=== PATIENT | female | born 1980 | race Caucasian/White ===

== ENCOUNTER 2021-01-28 11:22 | Day surgery (SDC) | payer OTHER, SELFPAY ==
[2021-01-22 10:17] VITALS: BMI 17.9
[2021-01-28] VITALS (7 sets, daily range): BP systolic 88–118; BP diastolic 62–79; PULSE 85–102; RESP 11–14; TEMP 36.5–36.9; O2SAT 99–100; BMI 17.3
--- NOTE | 2021-01-28 12:39 | WPDHPUPDATE1 ---
History and Physical Update Update Date/Time: 01/28/21 12:39 History and Physical has been reviewed, including an updated exam of the patient. There are NO changes in the patient's condition. Risks, benefits, and alternatives have been discussed and questions answered. Patient agrees to proceed with procedure.
--- NOTE | 2021-01-28 12:40 | WPDANESEPPF ---
Anes - Initial Pre Proc Eval Procedure: Operation Date: 01/28/21 13:00 Proposed Procedures p Bilateral Breast Augmentation Mammoplasty - Blaze Gregory MD Date/Time: 01/28/21 12:40 Surgeon: Blaze Gregory MD Pre Op Diagnosis: Micromastia Patient Data Age: 40 Gender: F Height: 1.77 m Weight: 54.05 kg Last Vital Signs Temp 36.9 C 01/28/21 12:21 Pulse 99 01/28/21 12:21 Resp 14 01/28/21 12:21 BP 109/62 01/28/21 12:21 Pulse Ox 99 01/28/21 12:21 Allergies Allergy/AdvReac Type Severity Reaction Status Date / Time gluten Allergy Mild STOMACH Verified 01/28/21 11:48 BLOATING AND INTESTINAL DAMAGE Penicillins Allergy Mild Hives / Verified 01/28/21 11:48 Red Face hydromorphone [From Dilaudid] Allergy Unknown unknown Verified 01/28/21 11:48 Sulfa (Sulfonamide Allergy Unknown Hives / Verified 01/28/21 11:48 Antibiotics) Red Face Home Medications Medication Instructions Recorded Confirmed Type cetirizine 10 mg capsule 10 mg PO DAILY 12/25/20 01/28/21 History glatiramer 40 mg/mL subcutaneous 40 mg SUBCUT 3XW 12/25/20 01/28/21 History syringe ketotifen PO 12/25/20 History quercetin 250 mg BYMOUTH TID 12/25/20 01/28/21 History docusate sodium 100 mg capsule 100 mg PO DAILY #14 cap 01/13/21 01/22/21 Rx ondansetron HCl 4 mg tablet 4 mg PO Q8H #21 tablet 01/13/21 01/28/21 Rx carisoprodol 350 mg tablet 350 mg PO TID PRN #21 tablet 01/14/21 01/22/21 Rx oxycodone-acetaminophen 5 mg-325 1 tablet PO Q6H PRN #15 tablet 01/14/21 01/22/21 Rx mg tablet famotidine [Pepcid AC] 10 mg PO DAILY 01/22/21 01/28/21 History lifitegrast [Xiidra] 1 drp EACH EYE BID 01/22/21 01/28/21 History lorazepam 1 mg PO TID 01/22/21 01/28/21 History rimegepant [Nurtec ODT] 75 mg PO ONCE PRN 01/22/21 01/28/21 History Patient hx anesthesia problems: none Family hx anesthesia problems: none Results Review: All pre-operative results and documents have been reviewed as part of the pre-operative evaluation. [facility] Surgical History Surgical History (Updated 01/28/21 @ 12:53 by Pierre Perales MD) H/O breast augmentation History of History of cholecystectomy History of total colectomy Family History Family History Father Dementia Mother Small fiber neuropathy Social History Social History Smoking status: Never smoker Alcohol intake: never Living arrangements: with family Spiritual care concerns: No Anes - Eval Final PreProcedure Day of Procedure 01/28/21 12:40 Patient weight: thin Heart: regular rate and rhythm Lungs: clear to auscultation Airway: Mallampati scale class 1 Neurological: alert and oriented Last oral intake: >/= 8 hours ASA classification: III Emergent: no Anesthetic plan: proceed Anesthesia type and monitoring: general LMA and standard monitoring Results Review: All pre-operative results and documents have been reviewed as part of the pre-operative evaluation. Informed Consent: The patient's anesthetic plan and its attendant risks and benefits were discussed with the patient/family/POA. Questions were solicited and answers provided to the satisfaction of the patient/family/POA.
[2021-01-28] MEDS: LACTATED RINGERS 1,000 ML 30 ML IV CONT ×2 (12:44→13:50)
--- NOTE | 2021-01-28 12:57 | W.PM.PROC2 ---
Procedure Note - Detailed Date of Procedure 01/28/21 Pre-op Diagnosis Micromastia Post-op Diagnosis same Procedure Performed Bilateral augmentation mammaplasty Surgeon Blaze Gregory MD Anesthesia general Findings Bilateral [place] SoftTouch Implants 345 cc Right - REF# [id number] SN [id number] Left - REF# [id number] SN [id number] Description of Procedure She is here today for bilateral breast augmentation. Previously and again today the risks, benefits, alternatives were discussed in extensive detail. I wanted her to be very realistic about the risks involved as well as expectations. She understands that repeat augmentation carries inherent risks greater than a primary surgery. We identified scar / chest wall asymmetry from previous surgery that would still exist after the procedure. Again we discussed BII to make sure she was wel informed of the risks and making the right decision for her especially given her past. We discussed aftercare and what to monitor for. Made sure answered all of her questions to her satisfaction today and consent was obtained. Marked in the preoperative holding area with their verification. The patient was taken to the operating room placed supine on the operating table. Anesthesia was provided by anesthesiology. A surgical time-out was taken. We cleansed the skin and 1% lidocaine and 0.25% Marcaine with epinephrine was used anesthetize as a field block. She was prepped and draped in a standard sterile fashion. Tegaderm nipple Zamora were placed. A 15 blade used to make an incision along the inframammary fold. Dissection was continued at 45 degree angle until the chest wall as identified. I incised the pectoralis major along its inferior border and completely released the inferior border leaving the medial border intact. I created a subpectoral pocket in the appropriate dimensions based on our preoperative planning for the implant. Capsule was present from previous augmentation and I was able to utilize. Irrigated with 3 liters of saline solutation on TUR tubing. Lateral popcorn capsulorraphy. I verified a strict hemostasis. Next the use a triple antibiotic and Betadine containing solution to irrigate the pocket. I washed my gloves with the triple antibiotic and Betadine solution. We washed the implant immediately upon opening it with this solution and only opened it when we needed it. I used implant funnel and no-touch technique. The implant was introduced into the pocket using the funnel. Having verified positioning of the implant this was closed using 2-0 Vicryl followed by 3-0 Monocryl in a running subcuticular 4-0 Monocryl followed by tissue glue. Fluffs and surgical bra were placed. Patient was awoke and taken to PACU without difficulty. All instrument sponge counts were correct at the end of the case. Estimated Blood Loss 20 Drains No Packing No Pathology none sent Complications No immediate complications Condition stable Disposition PACU
[2021-01-28] MEDS: SCOPOLAMINE 1.5 MG PATCH TRANSDERM (12:58)
[2021-01-28] MEDS: ceFAZolin SODIUM 2 GM/20 ML SW SYRINGE IV PUSH (13:00)
[2021-01-28] MEDS: BUPIVACAINE HCL 0.25% 50 ML VIAL 40 ML INFILTRATE (13:19)
[2021-01-28] MEDS: LIDO 1%/EPINEPHRINE 1:100,000 20 ML VIAL 30 ML INFILTRATE (13:20)
[2021-01-28] MEDS: fentaNYL CITRATE INJ (*CRX) 100 MCG/2 ML VIAL 25 MCG IV PUSH ×4 (13:56→14:16)
--- NOTE | 2021-01-28 14:24 | WPDANESPN ---
Anes - Prog Note Post-Op Date/Time: 01/28/21 14:24 Cardiovascular status: normal Respiratory status: normal Airway patency: baseline Mental status: baseline Post-Op hydration status: normal Vital Signs: Last Vital Signs Temp 36.5 C 01/28/21 13:50 Pulse 99 01/28/21 14:15 Resp 13 01/28/21 14:15 BP 114/69 01/28/21 14:15 Pulse Ox 100 01/28/21 14:15 Pain Score (VAS): 310 I/O: Intake & Output 01/27/21 01/28/21 01/28/21 23:59 07:59 15:59 Intake Total 200 Balance 200 Post-procedural complaints: none Patient Feedback: Patient satisfied with anesthetic care. Pt. is AAO x 3 with no nausea and minimal pain.
== END 2021-01-28 11:23 | disposition home or self-care (01) ==
PROVIDERS: Visit Provider Surgery Plastic and Reconstructive Surgery
PROC: (CPT 19325; principal; 2021-01-28 13:00)
DX: N64.82 Hypoplasia of breast (principal)
CPT/HCPCS: 19325

== ENCOUNTER 2021-02-26 11:06 | Emergency (ER) | payer OTHER, SELFPAY ==
--- NOTE | ~2021-02-26 | CT_ITS ---
EXAMINATION: CT abdomen pelvis w con INDICATION: Abdominal pain, history of colectomy TECHNIQUE: Computed tomographic images of the abdomen and pelvis were obtained after the administrati on of 100 cc of Omnipaque 350 intravenous contrast. The dose-length product (DLP) was 168.18 mGy-cm. Automated exposure control and iterative reconstruction technique were employed. COMPARISON: None available FINDINGS: The lung bases are clear. The heart size is normal. The liver, spleen, pancreas, and adrena l glands are normal. The gallbladder is surgically absent. The kidneys are unremarkable. No pathologi maria antonia enlarged abdominal or pelvic lymph nodes are identified. There is no free intraperitoneal gas o r evidence of bowel obstruction. There are changes of near total colectomy with a small bowel to rect um anastomosis present. IMPRESSION: 1. No CT correlate for the patient's symptoms. Reviewed, dictated and finalized at location A. MANAGER
[2021-02-26 11:13] VITALS: BP 139/74; PULSE 102; RESP 16; TEMP 37.3; O2SAT 99
[2021-02-26 12:05] VITALS: BP 130/82; PULSE 94; RESP 18; TEMP 36.4; O2SAT 98
[2021-02-26 12:34] LABS: Basophils Percent Auto 0.5 % (0.2-1.2); Eosinophils Percent Auto 0.2 % (0-4.4); Hematocrit 43.5 % (37.0-47.0); Hemoglobin 14.4 g/dL (12.0-15.0); Immature Granulocyte Absolute 0.02 K/mm3 (0.00-0.031); Immature Granulocyte Percent A 0.3 % (0-0.5); Lymphocytes Absolute Auto 1.05 K/mm3 (0.9-3.2); Lymphocytes Percent Auto 17.8 % (18.3-44.2); Mean Corpuscular HGB Conc 33.1 g/dl (32-36); Mean Corpuscular Hemoglobin 29.8 pg (26-34); Mean Corpuscular Volume 90.1 fl (80-100); Mean Platelet Volume 9.6 fl (7.4-10.4); Monocytes Absolute Auto 0.3 K/mm3 (0.1-0.6); Monocytes Percent Auto 5.4 % (2.6-8.5); Neutrophils Absolute Auto 4.5 K/mm3 (1.3-6.7); Neutrophils Percent Auto 75.8 % (45.5-73.1); Platelet Count Result 271 k/mm3 (150-375); Red Blood Count 4.83 M/mm3 (4.2-5.4); Red Cell Distribution Width 13.8 % (11.5-14.5); White Blood Count 5.9 K/mm3 (4.5-10.0)
[2021-02-26 12:42] LABS: Alanine Aminotransferase 74 U/L (4-35); Albumin Level 5.4 g/dL (3.5-5.1); Alkaline Phosphatase 59 U/L (38-126); Anion Gap 14 mmol/L (8-16); Aspartate Amino Transferase 49 U/L (14-36); Bilirubin,Total 0.3 mg/dL (0.2-1.3); Blood Urea Nitrogen 10 mg/dL (7-17); Calcium 9.6 mg/dL (8.4-10.2); Carbon Dioxide 24 mmol/L (22-30); Chloride 107 mmol/L (98-107); Estimated CRCL calculation 102 ml/min; Estimated Glomerular Filt Rate > 60; Glucose 102 mg/dL (65-110); Lipase 79 U/L (23-300); Potassium 3.9 mmol/L (3.4-5.0); Sodium 145 mmol/L (137-145)
[2021-02-26] MEDS: MORPHINE SULFATE (*CRX) 2 MG/ML INJ IV PUSH (13:01)
[2021-02-26] MEDS: SODIUM CHLORIDE 0.9% IV 1,000 ML 999 ML IV CONT (13:02)
[2021-02-26 13:21] LABS: Add Urine Microscopic? YES; Appearance Urine Cloudy (Clear); Bilirubin Urine Negative (Negative); Blood Urine Negative (Negative); Color Urine Yellow (Yellow); Glucose Urine UA Negative (Negative); Ketones Urine 1+ mg/dL (Negative); Leukocyte Esterase Ur Negative LEU/UL (Negative); Mucus Urine Few /lpf; Nitrate Urine Negative (Negative); Protein Urine 1+ mg/dL (Negative); Specific Grav Ur 1.021 (1.001-1.035); Squamous Epithelial Cell Urine Rare /hpf (Few); Urobilinogen Urine Negative mg/dL (<2.0)
--- NOTE | 2021-02-26 14:19 | ED.GENADULT ---
HPI - General Adult General Chief complaint: Nausea/Vomiting/Diarrhea Stated complaint: N/V Time Seen by Provider: 02/26/21 12:18 Source: patient and family () Mode of arrival: ambulatory Limitations: no limitations History of Present Illness HPI narrative: Patient is a 40-year-old female with history of large bowel resection with complete anastomoses in September 2020, presented with chief complaint of central abdominal discomfort accompanied by nausea and vomiting. Patient reports that she took Zofran prior to arrival to help decrease her vomiting. Patient reports that she has had some dry heaving since. Patient also had her gallbladder removed 15+ years ago. Patient appendix was removed at the time of her bowel resection. Patient reports that her GI specialist is Dr. Gegier at [facility]. Patient reports that her symptoms began this morning. She denies any diarrhea. Patient reports that she has gluten intolerance but cannot recall eating something that she suspects will trigger her symptoms. Related Data Home Medications Medication Instructions Recorded Confirmed cetirizine 10 mg capsule 10 mg PO DAILY 12/25/20 01/28/21 glatiramer 40 mg/mL subcutaneous 40 mg SUBCUT 3XW 12/25/20 01/28/21 syringe ketotifen PO 12/25/20 quercetin 250 mg BYMOUTH TID 12/25/20 01/28/21 Nurtec ODT 75 mg PO ONCE PRN 01/22/21 01/28/21 Xiidra 1 drp EACH EYE BID 01/22/21 01/28/21 famotidine [Pepcid AC] 10 mg PO DAILY 01/22/21 01/28/21 lorazepam 1 mg PO TID 01/22/21 01/28/21 Allergies Allergy/AdvReac Type Severity Reaction Status Date / Time gluten Allergy Mild STOMACH Verified 02/26/21 12:04 BLOATING AND INTESTINAL DAMAGE Penicillins Allergy Mild Hives / Verified 02/26/21 12:04 Red Face hydromorphone [From Dilaudid] Allergy Unknown unknown Verified 02/26/21 12:04 Sulfa (Sulfonamide Allergy Unknown Hives / Verified 02/26/21 12:04 Antibiotics) Red Face Review of Systems Review of Systems: CONSTITUTIONAL: Denies fever, chills, or sweats. EYES: Denies visual changes, redness, or discharge. ENT: Denies rhinorrhea, congestion, sore throat, or otalgia. CARDIOVASCULAR: Denies chest pain, palpitations, or edema. RESPIRATORY: Denies cough or dyspnea. GASTROINTESTINAL: Reports abdominal pain, nausea, vomiting denies diarrhea. GENITOURINARY: Denies dysuria or hematuria. SKIN: Denies rash or itching. MUSCULOSKELETAL: Denies back pain, joint pain, or myalgia. NEUROLOGIC: Denies headache, numbness, dizziness, or weakness. PSYCHIATRIC: Denies anxiety or depression. [facility] Surgical History Surgical History (Updated 01/28/21 @ 12:53 by Pierre Perales MD) H/O breast augmentation History of History of cholecystectomy History of total colectomy Family History Family History Father Dementia Mother Small fiber neuropathy Social History Social History Smoking status: Never smoker Alcohol intake: never Spiritual care concerns: No Exam Narrative: GENERAL: Well-appearing, well-nourished, and in no acute distress. HEAD: Normocephalic, atraumatic. EYES: PERRLA and EOMI. ENT: Nares clear, no rhinorrhea or epistaxis. Mucous membranes moist. Oropharynx without tonsillar hypertrophy exudate or other lesions. Bilateral TMs pearly liz nonbulging CHEST: Clear to auscultation. No respiratory distress. No wheezes rales or rhonchi HEART: Regular rate and rhythm. No murmur heard. Normal peripheral pulses. ABDOMEN: Soft, tender to upper and lower central abdomen, nondistended, normal active bowel sounds. EXTREMITIES: Normal range of motion. No edema. SKIN: Warm, dry, no rash. NEURO: No focal deficits. Alert and oriented x3. PSYCH: Normal mood and affect. Course Vital Signs Vital signs: Vital Signs Temperature 99.2 F 02/26/21 11:13 Pulse Rate 102 H 02/26/21 11:13 Respiratory R
[2021-02-26 15:28] VITALS: BP 132/86; PULSE 84; RESP 17; O2SAT 98
== END 2021-02-26 15:30 | disposition home or self-care (01) ==
PROVIDERS: Emergency Provider Emergency Medicine
DX: R11.2 Nausea with vomiting, unspecified (principal); R10.33 Periumbilical pain
CPT/HCPCS: 36415; 74177; 80053; 81001; 81025; 83690; 85025; 96361; 96374; 99284; J2270; J7030; Q9967

== ENCOUNTER 2022-10-21 16:55 | Emergency (ER) | payer OTHER, SELFPAY ==
[2022-10-21 17:13] VITALS: BP 122/79; PULSE 119; RESP 18; TEMP 37.1; O2SAT 98
[2022-10-21 17:18] VITALS: BP 122/79; PULSE 119; RESP 18; TEMP 37.1; O2SAT 98
--- NOTE | 2022-10-21 17:33 | ED.EXTPRO ---
HPI - Extremity Problem General Chief complaint: Extremity Problem,Nontraumatic Stated complaint: Swelling in legs Time Seen by Provider: 10/21/22 17:14 Source: patient and RN notes reviewed Mode of arrival: ambulatory Limitations: no limitations History of Present Illness HPI Narrative: Patient presents today complaining of significant bilateral lower extremity swelling since yesterday with nausea. Patient states she believes this may be due to the 10 doses of MiraLax she consumed 2 days ago for her constipation. States she has gained 15 lb in fluid over the last couple of days. Denies shortness of breath or chest pain. Reports she tried 1 dose of an [id number] diuretic today without relief of symptoms. 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 States she has slowly been increasing her weight over the last several months. Related Data Home Medications Medication Instructions Recorded Confirmed cetirizine 10 mg capsule (Zyrtec) 10 mg PO DAILY 12/25/20 10/21/22 lifitegrast 5 % eye drops in a 1 drp EACH EYE BID 01/22/21 10/21/22 dropperette (Xiidra) azelastine 137 mcg (0.1 %) nasal 137 mcg intranasal Q12H 10/21/22 10/21/22 spray aerosol fluticasone propionate 50 1 spray intranasal DAILY 10/21/22 10/21/22 mcg/actuation nasal spray,suspension levocetirizine 5 mg tablet (Xyzal) 5 mg PO DAILY 10/21/22 10/21/22 valacyclovir 500 mg tablet 500 mg PO BID 10/21/22 10/21/22 Allergies Allergy/AdvReac Type Severity Reaction Status Date / Time gluten Allergy Mild STOMACH Verified 09/16/21 07:51 BLOATING AND INTESTINAL DAMAGE Penicillins Allergy Mild Hives / Verified 09/16/21 07:51 Red Face hydromorphone [From Dilaudid] Allergy Unknown unknown Verified 09/16/21 07:51 Sulfa (Sulfonamide Allergy Unknown Hives / Verified 09/16/21 07:51 Antibiotics) Red Face methocarbamol Allergy Swelling Verified 10/21/22 17:08 Review of Systems Review of Systems: CONSTITUTIONAL: Denies body aches, fever, chills, or sweats. EYES: Denies visual changes, redness, or discharge. ENT: Denies rhinorrhea, congestion, sore throat, or otalgia. CARDIOVASCULAR: Denies chest pain, palpitations, or edema. RESPIRATORY: Denies cough or dyspnea. GASTROINTESTINAL: Denies abdominal pain, vomiting, or diarrhea.+ nausea GENITOURINARY: Denies dysuria or hematuria. SKIN: Denies rash, itching, or wounds. MUSCULOSKELETAL: Denies back pain, joint pain, or myalgia.+ bilateral lower extremity swelling NEUROLOGIC: Denies headache, numbness, tingling, or weakness. PSYCH: Denies depression or anxiety. [facility] Surgical History Surgical History H/O breast augmentation History of History of cholecystectomy History of total colectomy Family History Family History Father Dementia Mother Small fiber neuropathy Social History Social History Smoking status: Former smoker Alcohol intake: never Living arrangements: with family Spiritual care concerns: No Comments At time of signature, I have reviewed and agree with nursing past medical, surgical, social and family history unless otherwise noted. Please see nursing chart for further information. There is no relevant family history pertinent to the presenting complaint Exam Narrative: GENERAL: Chronically ill-appearing, well-nourished, tearful, thin. HEAD: Normocephalic, atraumatic. EYES: EOMI. No redness or drainage. Conjunctivae normal. ENT: Mucous membranes pink and moist. NECK: Normal AROM. CHEST: No respiratory distress. Clear to auscultation. HEART: Regular rate and rhythm. No murmur appreciated. Normal peripheral pulses. ABDOMEN: Soft, nontender, nondistended, normal active
== END 2022-10-21 17:37 | disposition short-term general hospital (02) ==
PROVIDERS: Emergency Provider Nurse Practitioner
DX: R60.0 Localized edema (principal); Z87.891 Personal history of nicotine dependence
CPT/HCPCS: 99212; G0463

== ENCOUNTER 2022-10-21 17:49 | Observation (INO) | payer OTHER, SELFPAY ==
--- NOTE | ~2022-10-21 | XR_ITS ---
EXAMINATION: XR chest 2V Exam Date/Time: 10/21/2022 19:43 CDT HISTORY: edema, SOB Comparison: None. RESULT: Lines, tubes, and devices: Bilateral breast implants. Lungs and pleura: Clear. Cardiomediastinal silhouette: Normal. Other: No acute osseous or upper abdominal finding. IMPRESSION: No acute cardiopulmonary process. Reviewed, dictated and finalized at location K.
--- NOTE | ~2022-10-21 | US_ITS ---
EXAMINATION: US renal BI DATE: 10/22/2022 08:35 INDICATION: Proteinuria TECHNIQUE: Multiple ultrasound grayscale images of the kidneys were obtained. COMPARISON: CT dated 02/26/2021 FINDINGS: The right kidney measures 11.2 x 5.3 x 4.3 cm. The left kidney measures 12.0 x 5.7 x 5.8 cm. The kidn eys demonstrate normal cortical width increased medullary echogenicity. There is no hydronephrosis in either kidney. No stones identified. The bladder is normal. IMPRESSION: 1. Bilateral increased renal medullary echogenicity. Differential would include medullary nephrocalc inosis which itself has a wide differential for etiologies, multiple additional metabolic diseases, h ypokalemia, protein deposition, medullary sponge kidney or fibrosis of the renal pyramids. Reviewed, dictated and finalized at location B. IMPRESSION: 1. Bilateral increased renal medullary echogenicity. Differential would includ e medullary nephrocalcinosis which itself has a wide differential for etiologie s, multiple additional metabolic diseases, hypokalemia, protein deposition, med ullary sponge kidney or fibrosis of the renal pyramids.
[2022-10-21 17:51] VITALS: BP 122/67; PULSE 106; RESP 16; TEMP 37.1; O2SAT 99
[2022-10-21 19:00] VITALS: BP 110/74; PULSE 100; RESP 14; O2SAT 100
--- NOTE | 2022-10-21 19:00 | PC.NURSE ---
Assumed care of pt. at this time. report from AFSHAN Lin
[2022-10-21 19:01] VITALS: BP 102/66; PULSE 87; RESP 18; O2SAT 100
--- NOTE | 2022-10-21 19:30 | ECG_ITS ---
Measurements Intervals Fowler Rate: 83 P: 60 VA: 108 QRS: 38 QRSD: 92 T: 56 QT: 343 QTc: 404 Interpretive Statements SINUS RHYTHM WITH SHORT VA INTERVAL POSSIBLE RIGHT VENTRICULAR CONDUCTION DELAY [RSR (QR) IN V1/V2] NO PREVIOUS ECG AVAILABLE FOR COMPARISON Electronically Signed On 10-22-2022 8:53:39 CDT by Hannah Dennis M.D.
--- NOTE | 2022-10-21 19:32 | ED.EXTPRO ---
HPI - Extremity Problem General Chief complaint: Extremity Problem,Nontraumatic Stated complaint: lower leg edema Time Seen by Provider: 10/21/22 19:03 History of Present Illness HPI Narrative: Patient is a 42-year-old female with a history of Cory-Danlos, gastroparesis presenting with bilateral lower extremity edema. Patient states that for the last several weeks she has been taking daily MiraLAX to help her have bowel movements. States that she struggles with constipation and when it gets too bad she is unable to eat and has recurrent vomiting. States that yesterday she noticed that her feet were swollen and they have continued to swell. States that she gained 10 pounds in 1 day. She denies chest pain or shortness of breath. No orthopnea or PND. Denies redness or pain with the swelling. States that her skin just feels tight. Denies abdominal pain or dysuria. States that she may be urinating less than normal. Related Data Home Medications Medication Instructions Recorded Confirmed cetirizine 10 mg capsule (Zyrtec) 10 mg PO DAILY 12/25/20 10/22/22 azelastine 137 mcg (0.1 %) nasal 137 mcg intranasal Q12H 10/21/22 10/22/22 spray aerosol fluticasone propionate 50 1 spray intranasal DAILY 10/21/22 10/22/22 mcg/actuation nasal spray,suspension levocetirizine 5 mg tablet (Xyzal) 5 mg PO DAILY 10/21/22 10/22/22 valacyclovir 500 mg tablet 500 mg PO BID 10/21/22 10/22/22 Allergies Allergy/AdvReac Type Severity Reaction Status Date / Time gluten Allergy Mild STOMACH Verified 10/21/22 17:57 BLOATING AND INTESTINAL DAMAGE Penicillins Allergy Mild Hives / Verified 10/21/22 17:57 Red Face hydromorphone [From Dilaudid] Allergy Unknown unknown Verified 10/21/22 17:57 Sulfa (Sulfonamide Allergy Unknown Hives / Verified 10/21/22 17:57 Antibiotics) Red Face methocarbamol Allergy Swelling Verified 10/21/22 17:57 Review of Systems Review of Systems: All systems reviewed & are unremarkable except as noted in HPI and below PMFSH Surgical History Surgical History H/O breast augmentation History of History of cholecystectomy History of total colectomy Family History Family History Father Dementia Mother Small fiber neuropathy Social History Social History Smoking packs per day: 1 Smoking cigarettes per day: 20.0 Years smoked: 7 Smoking pack-years: 7.00 Smoking status: Former smoker Alcohol intake: never Substance use: never Lack of Transportation: No Lack of Food: Never True Current Housing: I Have Housing Concerned About Future Housing: No Difficulty Paying Gas/Electric Bills: No Difficulty Paying for Meds: No Currently Unemployed: No Education: High School Diploma/GED Difficulty w/ Childcare or Family Care: No Living arrangements: with family Spiritual care concerns: No Exam Narrative: GENERAL: Well-appearing, well-nourished, and in no acute distress. HEAD: Normocephalic, atraumatic. EYES: PERRLA and EOMI. ENT: Nares clear, no rhinorrhea or epistaxis. Mucous membranes moist. NECK: Supple. CHEST: Clear to auscultation. No respiratory distress. HEART: Regular rate and rhythm. No murmur heard. Normal peripheral pulses. ABDOMEN: Soft, nontender, nondistended EXTREMITIES: Normal range of motion. +2 pitting edema to mid calves SKIN: Warm, dry, no rash. NEURO: No focal deficits. Alert and oriented x3. PSYCH: Normal mood and affect. Course Vital Signs Vital signs: Vital Signs Temperature 98.7 F 10/21/22 17:51 Pulse Rate 106 H 10/21/22 17:51 Respiratory Rate 16 10/21/22 17:51 Blood Pressure 122/67 10/21/22 17:51 Pulse Oximetry 99 10/21/22 17:51 Oxygen Delivery Room Air 10/21/22 17:51 Temperature 98.3 F 10/22/22 04:03 Pulse
[2022-10-21 19:58] LABS: Appearance Urine Clear (Clear); Bacteria Urine None Seen /hpf; Bilirubin Urine Negative (Negative); Blood Urine Negative (Negative); Color Urine Yellow (Yellow); Glucose Urine UA Negative (Negative); Ketones Urine Negative (Negative); Leukocyte Esterase Ur Negative LEU/UL (Negative); Nitrate Urine Negative (Negative); Protein Urine 1+ mg/dL (Negative); RBC Urine 0-2 /hpf (0-2); Specific Grav Ur 1.026 (1.001-1.035); Squamous Epithelial Cell Urine None seen /hpf (Few); Urobilinogen Urine 0.2 mg/dL (<2.0); WBC Urine 0-5 /hpf; pH Urine 5.5 (5.0-9.0)
[2022-10-21 20:00] VITALS: BP 111/74; PULSE 90; RESP 14; O2SAT 99
[2022-10-21 20:03] LABS: Basophils Percent Auto 0.5 % (0.2-1.2); Eosinophils Absolute Auto 0.1 K/mm3 (0-0.3); Eosinophils Percent Auto 1.7 % (0-4.4); Hematocrit 30.4 % (37.0-47.0); Hemoglobin 10.5 g/dL (12.0-15.0); Immature Granulocyte Absolute 0.02 K/mm3 (0.00-0.031); Immature Granulocyte Percent A 0.3 % (0-0.5); Lymphocytes Absolute Auto 1.37 K/mm3 (0.9-3.2); Lymphocytes Percent Auto 23.1 % (18.3-44.2); Mean Corpuscular HGB Conc 34.5 g/dl (32-36); Mean Corpuscular Hemoglobin 33.3 pg (26-34); Mean Corpuscular Volume 96.5 fl (80-100); Mean Platelet Volume 9.1 fl (7.4-10.4); Monocytes Absolute Auto 0.6 K/mm3 (0.1-0.6); Monocytes Percent Auto 10.4 % (2.6-8.5); Neutrophils Absolute Auto 3.8 K/mm3 (1.3-6.7); Platelet Count Result 222 k/mm3 (150-375); Red Blood Count 3.15 M/mm3 (4.2-5.4); Red Cell Distribution Width 14.6 % (11.5-14.5); White Blood Count 5.9 K/mm3 (4.5-10.0)
[2022-10-21 20:13] LABS: Add Urine Microscopic? YES
[2022-10-21 20:22] LABS: INR 0.9; Prothrombin Time 12.5 Seconds (11.1-14.7)
[2022-10-21 20:23] LABS: Partial Thromboplastin Time 23.4 SECONDS (22.3-36.8)
[2022-10-21 20:25] LABS: Alanine Aminotransferase 82 U/L (6-35); Albumin Level 3.7 g/dL (3.5-5.1); Alkaline Phosphatase 55 U/L (38-126); Anion Gap 4 mmol/L (8-16); Aspartate Amino Transferase 54 U/L (14-36); Bilirubin,Total 0.3 mg/dL (0.2-1.3); Blood Urea Nitrogen 30 mg/dL (7-17); Carbon Dioxide 22 mmol/L (22-30); Chloride 110 mmol/L (98-107); Estimated CRCL calculation 84 ml/min; Estimated Glomerular Filt Rate > 60; Glucose 86 mg/dL (65-110); Lipase 406 U/L (23-300); Potassium 3.4 mmol/L (3.4-5.0); Sodium 136 mmol/L (137-145)
[2022-10-21 20:36] LABS: NT Pro B Type Natriuretic Pept 2320 pg/mL (19.9-100); Troponin I < 0.012 ng/mL (0.000-0.034)
[2022-10-21 22:00] VITALS: BP 106/68; PULSE 97; RESP 14; O2SAT 97
[2022-10-21 23:34] LABS: Troponin I < 0.012 ng/mL (0.000-0.034)
[2022-10-21 23:51] VITALS: BMI 16.7
[2022-10-21 23:52] VITALS: BP 105/62; PULSE 91; RESP 18; TEMP 36.3; O2SAT 99
--- NOTE | 2022-10-22 | ECHO_ITS ---
Patient Info Name: Maryjane Rodríguez Age: 42 years : 1980 Gender: Female Ht: 69 in Wt: 113 lbs BSA: 1.56 m2 HR: 99 bpm BP: 110 / 50 mmHg Technical Quality: Fair Exam Date: 10/22/2022 9:31 AM Exam Location: [facility] Pulmonary Exam Room: [facility] Patient Status: Outpatient Admit Date: 10/21/2022 Staff Ordering Physician: Renan Young MD .Net Developer: Kyung Garcia RDCS Attending Provider: Renan Young MD Referring Physician: Hector MILLIGAN; Exam Type: CA echo doppler color flow Study Info Indications - elevated bnp STUART Summary 1. Left ventricular chamber dimension is normal. 2. Left ventricular systolic function is normal, estimated at 60-65%. 3. The left ventricular diastolic function is normal. 4. E/e' 6 is not elevated. 5. Left atrial chamber dimension is mildly enlarged. 6. There is mild mitral valve regurgitation. 7. There is mild tricuspid valve regurgitation. 8. No pulmonary hypertension, estimated pulmonary arterial systolic pressure is 36 mmHg. Left Ventricle E/e' 6 is not elevated. Left ventricular chamber dimension is normal. Left ventricular systolic function is normal, estimated at 60-65%. The left ventricular diastolic function is normal. Right Ventricle Right ventricular chamber dimension is normal. Right ventricular systolic function is normal. Left Atria Left atrial chamber dimension is mildly enlarged. Right Atria Right atrial chamber dimension is normal. Aortic Valve The aortic valve is trileaflet. There is no aortic valve stenosis. There is no aortic valve regurgitation. Pulmonic Valve There is no pulmonic regurgitation. Mitral Valve There is no mitral valve stenosis. There is mild mitral valve regurgitation. Tricuspid Valve There is mild tricuspid valve regurgitation. No pulmonary hypertension, estimated pulmonary arterial systolic pressure is 36 mmHg. Pericardium/Pleural There is no pericardial effusion. Inferior Vena Cava Normal inferior vena cava with >50% collapse upon inspiration consistent with normal right atrial pressure, 5 mmHg. Aorta The aortic root size at the sinus of Valsalva is normal. Left Ventricular Outflow Tract Name Value Normal LVOT 2D LVOT Diameter 2.0 cm LVOT Doppler LVOT Peak Gradient 5 mmHg LVOT Mean Gradient 3 mmHg LVOT VTI 20 cm LVOT VTI/AV VTI Ratio 1.0 LVOT Stroke Volume 65 ml LVOT CO 14.1 l/min LVOT CI 9.0 l/min/m2 Pulmonic Valve Name Value Normal RVOT Doppler RVOT Peak Gradient 2 mmHg PV Doppler PV Peak Gradient 3 mmHg Mitral Valve Name
--- NOTE | 2022-10-22 00:07 | PC.NURSE ---
This patient, Maryjane Rodríguez, was admitted to Medical Room 347-. Patient/family oriented to hospital policies and general routines including ID bracelet, bed and alarms, visiting hours, pain management, procedures, bathroom and other care routines, personal items, smoking policy, room service/diet, and visiting hours. Information on how to activate the Rapid Response Team has been discussed. Patient/Family are encouraged to report perceived risks to care and to ask questions if they do not understand what they are told or what they should do.
--- NOTE | 2022-10-22 03:36 | PM.IMHP ---
H&P: HPI History of Present Illness Date/Time: 10/22/22 03:36 Chief Complaint: Pedal swelling Narrative: This is a 42-year-old female with past medical history significant for Ehler Danhlos disease, status post total colectomy, gastroparesis, mast cell activation syndrome. patient presents to the emergency room due to bilateral lower extremity pedal swelling for several days which has gotten worse, denies any rashes, fevers, chills, nausea, vomiting, diarrhea, joint pain. Preliminary workup was significant for brain natriuretic peptide of 2320, hemoglobin 10.5 hematocrit 30 MCV 95 Review of Systems Review of Systems: pedal swelling Constitutional: Constitutional: Denies chills, Reports fatigue, Denies fever(s), Denies night sweats, Reports weakness and Reports weight loss Eyes: Eyes: Denies change in vision ENT: Denies dysphagia, Denies vertigo, Denies dizziness and Denies odynophagia Cardiovascular: Cardiovascular: Denies chest pain, Reports pedal edema, Denies radiating jaw, neck or arm pain, Denies palpitations, Denies dyspnea, Denies dyspnea on exertion, Denies orthopnea and Denies paroxysmal nocturnal dyspnea Respiratory: Respiratory: Denies chest congestion, Denies cough, Denies excessive phlegm production, Denies dyspnea and Denies wheezing Gastrointestinal: Gastrointestinal: Denies abdominal pain, Denies dyspepsia, Denies heartburn, Reports diarrhea, Denies nausea and Denies vomiting Genitourinary: Genitourinary: Denies dysuria Musculoskeletal: Musculoskeletal: Denies back pain, Denies arthralgias and Denies joint swelling Integumentary/Breasts: Skin/Breast: Denies rash Neurologic: Denies vertigo, Denies dizziness, Denies focal weakness and Denies Sensory deficit (Neuro) Psychiatric: Psychiatric: Reports no additional psychiatric complaints and Reports as per HPI Endocrine: Endocrine: Denies cold intolerance, Denies fatigue, Denies flushing, Denies heat intolerance, Denies polyphagia, Denies polydipsia and Denies palpitations Hematologic/Lymphatic: Hematologic/Lymphatic: Reports no additional hematologic/lymphatic complaints Allergic/Immunologic: Allergic/Immunologic: Reports no additional allergic/immunologic complaints and Reports as per HPI PMFSH Surgical History Surgical History H/O breast augmentation History of History of cholecystectomy History of total colectomy Family History Family History Father Dementia Mother Small fiber neuropathy Social History Social History Smoking packs per day: 1 Smoking cigarettes per day: 20.0 Years smoked: 7 Smoking pack-years: 7.00 Smoking status: Former smoker Alcohol intake: never Substance use: never Lack of Transportation: No Lack of Food: Never True Current Housing: I Have Housing Concerned About Future Housing: No Difficulty Paying Gas/Electric Bills: No Difficulty Paying for Meds: No Currently Unemployed: No Education: High School Diploma/GED Difficulty w/ Childcare or Family Care: No Living arrangements: with family Spiritual care concerns: No Meds Home Medications and Allergies Home Medications Medication Instructions Recorded Confirmed Type cetirizine 10 mg capsule (Zyrtec) 10 mg PO DAILY 12/25/20 10/22/22 History azelastine 137 mcg (0.1 %) nasal 137 mcg intranasal Q12H 10/21/22 10/22/22 History spray aerosol fluticasone propionate 50 1 spray intranasal DAILY 10/21/22 10/22/22 History mcg/actuation nasal spray,suspension levocetirizine 5 mg tablet (Xyzal) 5 mg PO DAILY 10/21/22 10/22/22 History valacyclovir 500 mg tablet 500 mg PO BID 10/21/22 10/22/22 History Allergies Allergy/AdvReac Type Severity Reaction Status Date / Time gluten Allergy Mild STOMACH Verified 10/21/22 17:57 BLOATING AND
[2022-10-22 04:03] VITALS: BP 110/50; PULSE 99; RESP 18; TEMP 36.8; O2SAT 99
[2022-10-22] MEDS: valACYclovir HCL 500 MG TABLET PO (11:03)
[2022-10-22] MEDS: FLUTICASONE PROPIONATE 0.05% NA SPR 16 GM BTL (*BKC) 1 SPRAY NASAL (11:03)
[2022-10-22] MEDS: AZELASTINE HCL NASAL 0.1% 137 MCG/SPR 30 ML BTL 1 SPRAY NASAL (11:03)
[2022-10-22 11:38] LABS: Creatinine Urine 107.3 mg/dL; Total Protein Urine Random 47 mg/dL; Ur Ttl Prot Creatinine Ratio 0.44 mg/mg (0-0.20)
--- NOTE | 2022-10-22 13:24 | PM.DS ---
DS: Admitting Diagnosis Discharge Date TuesdayOctober 22 Admitting Diagnosis Croy-Danlos syndrome DS: Discharge Diagnosis Discharge Diagnosis (1) Pedal edema: Code(s): R60.0 - Localized edema Status: Acute Assessment and Plan: BNP elevated on admission, likely contributed to severe malnourishment. ECHO was negative (2) Moderate protein-calorie malnutrition (weight for age 60-74% of standard): Code(s): E44.0 - Moderate protein-calorie malnutrition Status: Acute Assessment and Plan: Related to gastroparesis Patient on a high protein diet and is making attempts to gain weight. Encourage Ensure as well (3) Cory-Danlos syndrome: Code(s): Q79.60 - Cory-Danlos syndrome, unspecified Status: Acute Assessment and Plan: Stable (4) Mast cell activation syndrome: Code(s): D89.40 - Mast cell activation, unspecified Status: Acute Assessment and Plan: Stable (5) Multiple sclerosis: Code(s): G35 - Multiple sclerosis Status: Acute Assessment and Plan: Stable DS: Summary Hospital Course Hospital Course: This is a 42-year-old female with past medical history significant for? Ehler Danhlos? disease, status post total colectomy, gastroparesis, mast cell activation syndrome. patient presents to the emergency room due to bilateral lower extremity pedal swelling for several days which has gotten worse, denies any rashes, fevers, chills, nausea, vomiting, diarrhea, joint pain.? Preliminary workup was significant for brain natriuretic peptide? of 2320, hemoglobin 10.5 hematocrit 30 MCV 95. 8/11: Maryjane is seen today resting in bed. She appears well and says that her leg swelling has improved considerably. She has both of her lower legs elevated. Echocardiogram was completed and was normal. Her renal ultrasounds were also normal with the exception of increased renal medullary echogenicity likely related to her severe malnutrition. BNP was elevated on admission also likely related to malnutrition his echocardiogram was normal. She states she is ready to go. She already has been tried taking weight by eating high-protein diet. Will encourage addition of protein shakes like ensure at discharge. Status at Discharge Cognitive/behavioral status at discharge: A&Ox4, independent, back to baseline Time Spent with Patient Time attestation: Total time spent providing and/or coordinating discharge services:35 Exam Narrative: General: thin, cachectic 42-year-old female, sitting up in bed, comfortable, NARD Neuro: awake, alert and oriented x4, speech clear, no focal neuro deficits noted HEENMT: normocephalic, atraumatic, EOMI, sclerae anicteric, moist oral mucosa Respiratory: Clear to auscultation bilaterally without crackles, rhonchi or wheezes, nonlabored breathing Cardio: regular rate, regular rhythm with S1-S2 Abdomen: nondistended, normoactive bowel sounds, soft, flat, nontender to palpation Extremities: slight +1 pitting edema over bilateral malleolus, erythema, or tenderness to palpation, DP pulses 2+ bilaterally Skin: no rashes or lesions, warm and dry Psych: appropriate mood and affect, judgment and insight intact DS: Data Data Completed and Pending Labs on day of discharge: Labs from last 24 hours 10/22/22 10/21/22 10/21/22 11:10 23:07 19:56 WBC 5.9 RBC 3.15 L Hgb 10.5 L D Hct 30.4 L MCV 96.5 MCH 33.3 MCHC 34.5 RDW 14.6 H Plt Count 222 MPV 9.1 Immature Gran % (Auto) 0.3 Neut % (Auto) 64.0 Lymph % (Auto) 23.1 [place] % (Auto) 10.4 H Eos % (Auto) 1.7 Baso % (Auto) 0.5 Lymph # (Auto) 1.37 [place] # (Auto) 0.6 Eos # (Auto) 0.1 Baso # (Auto) 0.0 Abs Immat Gran (auto) 0.02 Absolute Neuts (auto) 3.8 Absolute Nucleated RBC 0.0 Nucleated RBC % 0.0 PT 12.5 INR 0.9 APTT 23.4 Sodium 136 L Potassium 3.4 Chloride 110 H Carbon Luigi
[2022-10-22 13:34] VITALS: BMI 16.7
== END 2022-10-22 14:10 | disposition home or self-care (01) ==
LOC: ANHED 19:14 → ANH3MED 10-22
PROVIDERS: Internal Medicine Nephrology; Admitting Provider Internal Medicine; Emergency Provider Emergency Medicine; Visit Provider Student in an Organized Health Care Education/Training Program
DX: R60.0 Localized edema (principal); R80.9 Proteinuria, unspecified; D89.40 Mast cell activation, unspecified; Q79.60 Ehlers-Danlos syndrome, unspecified; G35 Multiple sclerosis; K31.84 Gastroparesis; K59.00 Constipation, unspecified; Z87.891 Personal history of nicotine dependence; Z90.49 Acquired absence of other specified parts of digestive tract; E44.0 Moderate protein-calorie malnutrition; Z68.1 Body mass index [BMI] 19.9 or less, adult
CPT/HCPCS: 36415; 71046; 76775; 80053; 81001; 81050; 82570; 83690; 83735; 83880; 84156; 84484; 85025; 85610; 85730; 93005; 93306; 99285; A9270; G0378

== ENCOUNTER 2023-02-28 07:00 | Outpatient (NON) | payer OTHER, SELFPAY | END 2023-02-28 07:01 | disposition home or self-care (01) | LOC: ANHLAB 03-02 12:46 | PROVIDERS: Visit Provider Nurse Practitioner | DX: D22.5 Melanocytic nevi of trunk (principal) | CPT/HCPCS: 88305 ==

== ENCOUNTER 2023-12-12 11:27 | Outpatient (CLI) | payer MEDICARE, SELFPAY ==
--- NOTE | 2023-12-12 11:41 | ECG_ITS ---
Test Date: 2023-12-12 11:54:51 Measurements Intervals [place] Rate: 78 P: 37 MT: 99 QRS: -5 QRSD: 99 T: 42 QT: 346 QTc: 395 Interpretive Statements SINUS RHYTHM WITH SHORT MT INTERVAL INCOMPLETE RIGHT BUNDLE BRANCH BLOCK DELAYED PRECORDIAL R/S TRANSITION BASELINE ARTIFACT- I, II, III, AVR, AVL, AVF, V1-V6 BORDERLINE ECG No previous ECG available for comparison Electronically Signed On 12-12-2023 13:41:43 CDT by Jeremiah Wyatt D.O.
[2023-12-12 12:01] LABS: Hematocrit 40.2 % (37.0-47.0); Hemoglobin 13.9 g/dL (12.0-15.0)
[2023-12-12 12:15] LABS: Anion Gap 10 mmol/L (4-12); Blood Urea Nitrogen 36 mg/dL (7-17); Calcium 9.8 mg/dL (8.4-10.2); Carbon Dioxide 27 mmol/L (22-30); Chloride 98 mmol/L (98-107); Estimated Glomerular Filt Rate > 60; Glucose 99 mg/dL (65-110); Sodium 135 mmol/L (137-145)
== END 2023-12-12 11:28 | disposition home or self-care (01) ==
PROVIDERS: Anesthesiology; Visit Provider Surgery Plastic and Reconstructive Surgery
DX: Z01.818 Encounter for other preprocedural examination (principal); Z41.1 Encounter for cosmetic surgery; I45.19 Other right bundle-branch block; R94.31 Abnormal electrocardiogram [ECG] [EKG]
CPT/HCPCS: 36415; 80048; 85014; 85018; 93005

== ENCOUNTER 2023-12-16 04:09 | Day surgery (SDC) | payer OTHER, SELFPAY ==
[2023-12-07 14:20] VITALS: BMI 18.3
--- NOTE | 2023-12-07 14:26 | PC.NURSE ---
Report to the Outpatient Waiting Room, entrance under the green pavilion located off [facility], at time _1000_ on date _12/16/23__. Planned Procedure Time: _1200_.? Time changes happen often and if your time is changed the preop area will call you the afternoon before. - You and your visitor will be asked to self-screen and do not enter if you have any COVID symptoms. Please call surgeon if you need to reschedule. - A mask is optional within the hospital at this time. Patients may have clear liquids (water, carbonated beverages, clear teas, apple juice) until 3 hours prior to surgery with a maximum of 20 ounces. - No food from midnight until time of surgery and no smoking - Infants may have breast milk until 4 hours before surgery, infant formula 6 hours prior to surgery. - Children will be allowed to drink immediately following surgery.? If applicable, please bring a bottle or sippy cup to assist with drinking. Juice, water, soda, and popsicles are readily available.? For infants on formula, please bring formula the day of surgery.? Pacifiers are allowed. Take only the following medications with a SIP of water on the morning of surgery: __None_ DO NOT STOP ANY OF YOUR OTHER PRESCRIPTION MEDICATIONS PRIOR TO SURGERY EXCEPT THE FOLLOWING Medications to discontinue per physician vitamins or supplement 3 days prior_ Date to take last dose Please no make-up, nail new zealander, hairspray, perfume, deodorant, or body powder the day of surgery.? No jewelry (including any body piercings) or valuables the day of surgery, leave them at home.? Please take a shower or bath the night before, or the morning of, surgery with an antibacterial soap.? Wear comfortable, loose fitting clothing.? Children are encouraged to wear pajamas. - Jewelry must be removed prior to entering the operating room.? Rings and piercings that are not removed may be cut off. - The hospital will not accept responsibility for valuables.? - Please leave all valuables, including medications, at home the day of surgery. If you are going home after surgery, a licensed petroleum transport driver must drive you home.? - NO public transportation without another adult if you receive anesthesia. - We recommend that an adult stay with you for 24 hours following discharge. - We also recommend that you do not drive, make important decision, drink alcoholic beverages, or take any drugs that were not prescribed by your health care provider for at least 24 hours after your discharge time. For Pediatric surgeries, we recommend two adults accompany the child home. Follow any additional instructions given to you from your surgeon. Telephone instructions given to _patient___and asked if any additional questions and then verbalized understanding. Patient advised to call surgeon office or pre surgery nurse liaison [phone] if any additional questions.
[2023-12-16] VITALS (9 sets, daily range): BP systolic 104–131; BP diastolic 60–78; PULSE 74–93; RESP 12–21; TEMP 36.5–36.7; O2SAT 95–99; BMI 17.2
--- NOTE | 2023-12-16 10:16 | WPDANESEPPF ---
Anes - Initial Pre Proc Eval Procedure: Operation Date: 12/16/23 12:00 Proposed Procedures p Abdominoplasty elvira Phan - Blaze Gregory MD Date/Time: 12/16/23 10:16 Surgeon: Blaze Gregory MD Pre Op Diagnosis: Skin Laxity Patient Data Age: 43 Gender: F Height: 1.75 m Weight: 56.18 kg Allergies Allergy/AdvReac Type Severity Reaction Status Date / Time gluten Allergy Mild STOMACH Verified 12/07/23 14:05 BLOATING AND INTESTINAL DAMAGE Penicillins Allergy Mild Hives / Verified 12/07/23 14:05 Red Face hydromorphone [From Dilaudid] Allergy Unknown headaches Verified 12/07/23 14:05 Sulfa (Sulfonamide Allergy Unknown Hives / Verified 12/07/23 14:05 Antibiotics) Red Face methocarbamol Allergy Swelling Verified 12/07/23 14:05 Home Medications Medication Instructions Recorded Confirmed Type cetirizine 10 mg capsule (Zyrtec) 10 mg PO DAILY 12/25/20 12/07/23 History azelastine 137 mcg (0.1 %) nasal 137 mcg intranasal Q12H 10/21/22 12/07/23 History spray valacyclovir 500 mg tablet 500 mg PO BID 10/21/22 12/07/23 History ferric maltol 30 mg capsule 30 mg PO DAILY 12/07/23 12/07/23 History (Accrufer) hydrochlorothiazide 12.5 mg tablet 12.5 mg PO DAILY 12/07/23 12/07/23 History spironolactone 50 mg tablet 50 mg PO DAILY 12/07/23 12/07/23 History Patient hx anesthesia problems: none Family hx anesthesia problems: none Results Review: All pre-operative results and documents have been reviewed as part of the pre-operative evaluation. [facility] Past Medical History Medical History (Updated 12/16/23 @ 10:17 by Geraldo Fitzgerald DO) Cory-Danlos syndrome Mast cell activation syndrome Multiple sclerosis Surgical History Surgical History H/O breast augmentation History of History of cholecystectomy History of total colectomy Family History Family History Father Dementia Mother Small fiber neuropathy Social History Social History Smoking packs per day: 1 Smoking cigarettes per day: 20.0 Years smoked: 5 Smoking pack-years: 5.00 Smoking status: Former smoker Tobacco type: cigarettes Smoking end date: 01/18/08 Alcohol intake: current Drinks per week: 4 Alcohol use details: couple wine (2) bottles a week Substance use: never Substance use type: does not use Lack of Transportation: No Lack of Food: Never True Current Housing: I Have Housing Concerned About Future Housing: No Difficulty Paying Gas/Electric Bills: No Difficulty Paying for Meds: No Currently Unemployed: No Education: High School Diploma/GED Difficulty w/ Childcare or Family Care: No Living arrangements: alone Spiritual care concerns: No Anes - Eval Final PreProcedure Day of Procedure 12/16/23 10:16 Patient weight: normal Heart: regular rate and rhythm Lungs: clear to auscultation and normal air movement Airway: Mallampati scale class II Neurological: alert and oriented Last oral intake: >/= 8 hours ASA classification: III Emergent: no Anesthetic plan: proceed Anesthesia type and monitoring: general ETT and standard monitoring Results Review: All pre-operative results and documents have been reviewed as part of the pre-operative evaluation. Informed Consent: The patient's anesthetic plan and its attendant risks and benefits were discussed with the patient/family/POA. Questions were solicited and answers provided to the satisfaction of the patient/family/POA.
[2023-12-16 10:29] LABS: BEDSIDEPREGUCG Negative (Negative)
[2023-12-16 10:53] LABS: Urine Cotinine NEGATIVE
[2023-12-16] MEDS: SCOPOLAMINE 1 MG PATCH 1 PATCH TRANSDERM (11:00)
--- NOTE | 2023-12-16 11:18 | WPDHPUPDATE1 ---
History and Physical Update Update Date/Time: 12/16/23 11:18 History and Physical has been reviewed, including an updated exam of the patient. There are NO changes in the patient's condition. Risks, benefits, and alternatives have been discussed and questions answered. Patient agrees to proceed with procedure.
--- NOTE | 2023-12-16 11:18 | W.PM.PROC2 ---
Procedure Note - Detailed Date of Procedure 12/16/23 Pre-op Diagnosis Skin Laxity Post-op Diagnosis Same Procedure Performed Iliana abdominoplasty (no muscle repair) Surgeon Blaze Gregory MD Anesthesia General Findings Tissue removed: 132.6 grams Lipoaspirate: 200 cc Description of Procedure They are here today for the above procedures. Previously and again today the risks, benefits, alternatives were discussed in extensive detail. I wanted them to be very realistic about the risks involved as well as expectations. We discussed aftercare and what to monitor for. We discussed goals of previous scar removal and if we are unable to salvage the umbilicus will plant for reconstruction at a second stage (which is already schedule). She states with the scaring she would prefer a second stage reconstruction of umbilicus. She again declined muscle repair. She would like to have suction lipectomy for contouring as needed (not full abdominal liposuction). I was very upfront about the risks of wound breakdown leading to loss of skin, open wounds, and need for additional procedures with permanent abdominal deformity. We discussed DVT/PE risks and management. Made sure answered all of their questions to their satisfaction today and consent was obtained. They were marked in the preoperative holding area with their verification. The patient was taken to the operating room. Anesthesia was provided by anesthesiology. A Holman catheter was started. Prepped and draped in a standard sterile fashion. A surgical time-out was taken. I placed the patient in a flexed position to verify the upper and lower markings would reach. I then placed supine. A thorough abdominal examination was completed. Stab incisions were made and tumescent solution infiltrated. A liposuction 5mm basket cannula was utilized to provide discontinuous undermining. A 10 blade was used to make the upper incision and vertical incisions. I continued dissection down to the level of fascia. Elevated just what was necessary with no undermining required. I did remove the umbilicus as discussed. I then again flexed the bed to verify the upper skin flap would reach the lower markings without tension. Once verified I placed her supine once again and a 10 blade used to make the lower incision. A 2 mm blunt cannula with 0.5% bupivacaine was injected deep to the fascia bilaterally. The patient was flexed and starting from superior to inferior began plication using 2-0 Vicryl to obliterate all space in a standard progressive tension fashion. I continued the remainder of the repair using 2-0 Vicryl until I reached my lower planned scar line. I trimmed any excess skin of the upper flap making sure this was a tension-free closure. While tailor tacked into place I completed suction lipectomy with a 4mm osorio cannula to improve definition central and slight lateral. This was minimal just to improve contour. 15 Scottie drain was placed. I then approximated using a 3 point suture with 2-0 Vicryl followed by 2-0 PDO Stratafix, 3-0 Stratafix ,running subcuticular 4-0 Monocryl, and tissue glue. the same repair was completed for the vertical incision. Fluffs and an abdominal binder were placed. The patient was transferred to the bed in a flexed position. [place] and taken to the PACU without difficulty. All instrument and sponge counts were correct at the end of the case. Estimated Blood Loss 50 Drains Yes (15 Scottie) Packing No Pathology None sent Complications No immediate complications Condition Stable Disposition PACU
[2023-12-16] MEDS: LACTATED RINGERS 1,000 ML 30 ML IV CONT ×2 (11:30→14:05)
[2023-12-16] MEDS: TRANEXAMIC ACID 1,000MG/ISO100 1,000 MG/100 ML BAG 200 MG IVPB (11:54)
[2023-12-16] MEDS: ceFAZolin 2 GM/D5W 50 ML 2 GM/50 ML BAG IVPB (11:54)
[2023-12-16] MEDS: LACTATED RINGERS IRRIG 1,000 ML, LIDOCAINE HCL 1% LOCAL INJ 50 ML, EPINEPHrine HCL INJ ... INFILTRATE (12:40)
[2023-12-16] MEDS: BUPIVACAINE/EPINEPHRINE 0.5% 10 ML VIAL 60 ML INFILTRATE (12:46)
--- NOTE | 2023-12-16 15:19 | SUR.PHASEII ---
MD Fitzgerald contacted - pt requesting pain pill prior to discharge. Pt states she is ok to take oxycodone - going home with script for Percocet from surgeon. RN ok to give 5mg oxycodone PO once per MD Fitzgerald.
[2023-12-16] MEDS: oxyCODONE HCL (*CRX) 5 MG TAB IR PO (15:26)
== END 2023-12-16 16:05 | disposition home or self-care (01) ==
PROVIDERS: Visit Provider Surgery Plastic and Reconstructive Surgery
PROC: (CPT 15830; principal; 2023-12-16 12:00)
DX: Z41.1 Encounter for cosmetic surgery (principal); L57.4 Cutis laxa senilis; G35 Multiple sclerosis; D89.40 Mast cell activation, unspecified; Q79.60 Ehlers-Danlos syndrome, unspecified; Z98.890 Other specified postprocedural states; Z90.49 Acquired absence of other specified parts of digestive tract; Z87.891 Personal history of nicotine dependence
CPT/HCPCS: 15830; 15847; 15877; 80307; A9270; J0171; J0690; J1100; J2003; J2250; J2405; J2704; J3010; J7120